=== PATIENT | male | born 1990 ===

== ENCOUNTER 2017-04-15 07:55 | Emergency (ER) | payer OTHER ==
[2017-04-15 07:59] VITALS: BMI 26.1
[2017-04-15 08:04] VITALS: RESP 16
[2017-04-15] MEDS ORDERED: Sodium Chloride 0.9% 1,000 ML IV STA (08:45)
[2017-04-15] MEDS ORDERED: Iohexol 240 (50 ml) PO ONE (08:46)
--- NOTE | 2017-04-15 08:51 | ED PDOC ---
HPI: Abdomen Time Seen by Provider: 04/15/17 08:16 Chief Complaint (Nursing): Abdominal Pain Chief Complaint (Provider): Abdominal Pain History Per: Patient History/Exam Limitations: no limitations Onset/Duration Of Symptoms: Days (x2) Current Symptoms Are (Timing): Still Present Additional Complaint(s): 26 year old male with no significant past medical history, who presents to the ED due to tingling in his hands and epigastric abdominal pain x2 days. Patient states he works with his hands a lot and yesterday at 8pm his hands began cramping up and he had difficulty moving them. States the cramping resolved around 1am today, but he still has some intermittent tingling in his hands. Denies any pain or tingling in other areas of his arms. Patient is also complaining of epigastric pain with associated nausea and 3 episodes of non- bloody vomiting. Denies diarrhea, headaches, dizziness, weakness, neck pain, testicular pain, or any other injury or fall. PMD: Provider TBD Past Medical History Reviewed: Historical Data, Nursing Documentation, Vital Signs Vital Signs: Last Vital Signs Temp 97.0 F L 04/15/17 07:59 Pulse 83 04/15/17 07:59 Resp 16 04/15/17 07:59 BP 153/93 H 04/15/17 07:59 Pulse Ox 99 04/15/17 12:19 - Medical History PMH: No Chronic Diseases - Surgical History Surgical History: No Surg Hx - Family History Family History: States: Unknown Family Hx - Living Arrangements Living Arrangements: With Family - Home Medications Home Medications: Ambulatory Orders Medication Instructions Recorded Famotidine [Pepcid] 20 mg PO DAILY PRN #6 tab 04/15/17 Ibuprofen [Motrin] 600 mg PO TID 7 Days tab 04/15/17 - Allergies Allergies/Adverse Reactions: Allergies Allergy/AdvReac Type Severity Reaction Status Date / Time No Known Allergies Allergy Verified 04/15/17 07:58 Review of Systems ROS Statement: Except As Marked, All Systems Reviewed And Found Negative Constitutional: Negative for: Fever, Weakness Cardiovascular: Negative for: Chest Pain Gastrointestinal: Positive for: Nausea, Vomiting, Abdominal Pain Genitourinary Male: Negative for: Scrotal Pain Musculoskeletal: Positive for: Hand Pain (bilateral tingling). Negative for: Neck Pain Neurological: Negative for: Weakness, Headache, Dizziness Physical Exam - Reviewed Nursing Documentation Reviewed: Yes Vital Signs Reviewed: Yes - Physical Exam Appears: Positive for: Non-toxic, No Acute Distress Head Exam: Positive for: ATRAUMATIC, NORMAL INSPECTION, NORMOCEPHALIC Skin: Positive for: Normal Color, Warm, Dry. Negative for: Rash Eye Exam: Positive for: EOMI, Normal appearance, PERRL ENT: Positive for: Normal ENT Inspection. Negative for: Nasal Congestion Neck: Positive for: Normal, Painless ROM, Supple Cardiovascular/Chest: Positive for: Regular Rate, Rhythm. Negative for: Murmur Respiratory: Positive for: Normal Breath Sounds. Negative for: Respiratory Distress Gastrointestinal/Abdominal: Positive for: Soft, Tenderness (epigastric and RLQ) Back: Positive for: Normal Inspection. Negative for: L CVA Tenderness, R CVA Tenderness Extremity: Positive for: Normal ROM (hands bilaterally). Negative for: Tenderness, Deformity Neurologic/Psych: Positive for: Alert, odd shoe examiner II-XII, Oriented (x3). Negative for : Motor/Sensory Deficits (5/5 hand strength) - Laboratory Results Result Diagrams: 04/15/17 08:55 04/15/17 08:55 Interpretation Of Abn Labs: no acute - ECG O2 Sat by Pulse Oximetry: 99 (RA) Pulse Ox Interpretation: Normal - CT Scan/US abd/pelvis Other Rad Studies (CT/US): Read By Radiologist Other Rad Interpretation: no acute - Progress ED Course And Treament: 1258: Stable. AAOx3. Pain free. Tolerated po. Medical Decision Making Medical Decision Making: Time: 08:45 Initial Impression: Abdominal pain Initial Plan: --CT Abdomen and Pelvis --CMP --Lipase --CBC w/ differential --Sodium Chloroide 0.9% 1,000 mls/hr --Iohexol 50 ml PO --Pepcid 20 mg IVP --Toradol 15 mg IVP --Zofran Inj 4 mg IV --Reevaluation Scribe Attestation: Documented by Srinivas Quintana, acting as a scribe for Leonel La MD. Provider Scribe Attestation: All medical record entries made by the Scribe were at my direction and personally dictated by me. I have reviewed the chart and agree that the record accurately reflects my personal performance of the history, physical exam, medical decision making, and the department course for this patient. I have also personally directed, reviewed, and agree with the discharge instructions and disposition. Disposition - Clinical Impression Clinical Impression: Abdominal pain, Paresthesia - Patient ED Disposition Is Patient to be Admitted: No Counseled Patient/Family Regarding: Studies Performed, Diagnosis, Need For Followup, Rx Given - Disposition Referrals: [facility] [Outside] - 04/17/17 Disposition: Routine/Home Disposition Time: 12:59 Condition: STABLE Additional Instructions: Return if not better in 3 days. Prescriptions: Famotidine [Pepcid] 20 mg PO DAILY PRN #6 tab PRN Reason: Pain Ibuprofen [Motrin] 600 mg PO TID 7 Days tab Instructions: Abdominal Pain (ED), Paresthesia (ED) Forms: [facility] ED School/Work Excuse Print Language: GEORGIAN
[2017-04-15 09:02] LABS: BASO % 0.6 % (0.0-2.0); EOS # 0.1 K/uL (0.0-0.7); EOS % 0.8 % (0.0-4.0); HEMOGLOBIN 15.1 g/dL (12.0-18.0); LYMPH # 2.6 K/uL (1.0-4.3); LYMPH % 33.5 % (20.0-40.0); MEAN CELL VOLUME 87.9 fl (80.0-94.0); MEAN CORPUSCULAR HEMOGLOBIN 30.2 pg (27.0-31.0); MEAN CORPUSCULAR HGB CONC 34.3 g/dL (33.0-37.0); MEAN PLATELET VOLUME 9.7 fl (7.2-11.7); MONO % 12.9 % (0.0-10.0); NEUT # 4.1 K/uL (1.8-7.0); NEUT % 52.2 % (50.0-75.0); NRBC % 0.1 % (0.0-0.0); RED CELL DISTRIBUTION WIDTH 12.9 % (11.5-14.5); WHITE BLOOD COUNT 7.9 K/uL (4.8-10.8)
[2017-04-15 09:13] LABS: ALB/GLOB RATIO 1.3 (1.0-2.1); ALBUMIN 4.4 g/dL (3.5-5.0); ALT/SGPT 179 U/L (21-72); AST/SGOT 134 U/L (17-59); BLOOD UREA NITROGEN 11 mg/dl (9-20); CALCIUM 9.4 mg/dL (8.4-10.2); GFR AFRICAN-AMERICAN > 60; GFR NON-AFRICAN AMERICAN > 60; LIPASE 51 U/L (23-300)
[2017-04-15] MEDS ORDERED: Sodium Chloride 0.9% 50 ML IV ONE (10:30)
[2017-04-15] MEDS ORDERED: Iohexol 300 50 ML ONE (10:30)
--- NOTE | 2017-04-15 12:42 | CT ---
PROCEDURE: CT Abdomen and Pelvis with contrast HISTORY: abd pain COMPARISON: None. TECHNIQUE: Contrast dose: 95 cc of Omnipaque 300. Axial and reformatted coronal and sagittal CT images of the abdomen and pelvis were obtained after IV and oral contrast administration. Radiation dose: Total exam DLP = 889.66 mGy-cm. This CT exam was performed using one or more of the following dose reduction techniques: Automated exposure control, adjustment of the mA and/or kV according to patient size, and/or use of iterative reconstruction technique. FINDINGS: LOWER THORAX: Unremarkable. LIVER: Mild hepatomegaly demonstrates diffuse low-attenuation suggestive of mild hepatic steatosis. The portal vein is patent. . GALLBLADDER AND BILE DUCTS: Unremarkable. PANCREAS: Unremarkable. No gross lesion or ductal dilatation. SPLEEN: Unremarkable. ADRENALS: Unremarkable. No mass. KIDNEYS AND URETERS: Unremarkable. No hydronephrosis. No solid mass. VASCULATURE: Unremarkable. No aortic aneurysm. BOWEL: Mild constipation is noted. No obstruction. No gross mural thickening. APPENDIX: Normal appendix. PERITONEUM: Unremarkable. No free fluid. No free air. LYMPH NODES: Unremarkable. No enlarged lymph nodes. BLADDER: Unremarkable. REPRODUCTIVE: Unremarkable. BONES: No acute fracture. OTHER FINDINGS: None. IMPRESSION: No evidence of cholecystitis, pancreatitis or appendicitis. Mild constipation. Mild hepatomegaly and mild hepatic steatosis.
[2017-04-15 13:36] VITALS: BP 145/92; PULSE 80; TEMP 98.2; O2SAT 98
== END 2017-04-15 13:38 | disposition home or self-care (01) ==
LOC: H.ER 07:55
DX: R20.9 Unspecified disturbances of skin sensation (principal); R10.9 Unspecified abdominal pain
CPT/HCPCS: 74177; 80053; 83690; 85025; 96361; 96374; 96375; 99282; J1885; J2405; J7040; Q9966; Q9967

== ENCOUNTER 2018-03-12 09:30 | Emergency (ER) | payer OTHER ==
[2018-03-12 09:31] VITALS: BMI 26.1
--- NOTE | 2018-03-12 10:39 | ED PDOC ---
HPI: General Adult Time Seen by Provider: 03/12/18 10:37 Chief Complaint (Nursing): Flu-like Symptoms Chief Complaint (Provider): flu-like illness History Per: Patient (27 y/o male here with fever/chills/bodyaches/cough x 4 days. Has taken tylenol prn for fever. Notes mild cough nonproductive.) Past Medical History Reviewed: Historical Data, Nursing Documentation, Vital Signs Vital Signs: Last Vital Signs Temp 102.2 F H 03/12/18 10:30 Pulse 100 H 03/12/18 10:30 Resp 20 03/12/18 10:30 BP 150/91 H 03/12/18 10:30 Pulse Ox 98 03/12/18 10:30 - Family History Family History: States: Unknown Family Hx - Home Medications Home Medications: Ambulatory Orders Medication Instructions Recorded Famotidine [Pepcid] 20 mg PO DAILY PRN #6 tab 04/15/17 Ibuprofen [Motrin] 600 mg PO TID 7 Days tab 04/15/17 Acetaminophen [Acetaminophen Extra 2 tab PO Q6 PRN #24 tablet 03/12/18 Strength] Ibuprofen [Motrin Tab] 800 mg PO Q8 PRN #21 tab 03/12/18 Oseltamivir Cap [Tamiflu] 75 mg PO BID #10 cap 03/12/18 Promethazine/Codeine 5 ml PO Q12 PRN #100 ml 03/12/18 [Codeine/Promethazine 10 MG/5 Ml-6.25 MG/5 Ml] - Allergies Allergies/Adverse Reactions: Allergies Allergy/AdvReac Type Severity Reaction Status Date / Time No Known Allergies Allergy Verified 03/12/18 10:30 Review of Systems ROS Statement: Except As Marked, All Systems Reviewed And Found Negative Constitutional: Positive for: Fever Respiratory: Positive for: Cough Physical Exam - Reviewed Nursing Documentation Reviewed: Yes Vital Signs Reviewed: Yes - Physical Exam Appears: Positive for: Well, Non-toxic, No Acute Distress Head Exam: Positive for: ATRAUMATIC, NORMAL INSPECTION, NORMOCEPHALIC Skin: Positive for: Normal Color, Warm, DRY Eye Exam: Positive for: EOMI, Normal appearance, PERRL ENT: Positive for: Normal ENT Inspection Neck: Positive for: Normal, Painless ROM Cardiovascular/Chest: Positive for: Regular Rate, Rhythm Respiratory: Positive for: CNT, Normal Breath Sounds Gastrointestinal/Abdominal: Positive for: Normal Exam, Soft Back: Positive for: Normal Inspection Extremity: Positive for: Normal ROM Neurologic/Psych: Positive for: Alert, Oriented - ECG O2 Sat by Pulse Oximetry: 98 - Progress ED Course And Treament: Motrin 800mg x 1 dose Disposition - Clinical Impression Clinical Impression: Influenza - Patient ED Disposition Is Patient to be Admitted: No - Disposition Referrals: [facility] [place] [Outside] Disposition: Routine/Home Disposition Time: 10:39 Condition: FAIR Prescriptions: Acetaminophen [Acetaminophen Extra Strength] 2 tab PO Q6 PRN #24 tablet PRN Reason: Fever >100.4 F Ibuprofen [Motrin Tab] 800 mg PO Q8 PRN #21 tab PRN Reason: Fever >100.4 F Oseltamivir Cap [Tamiflu] 75 mg PO BID #10 cap Promethazine/Codeine [Codeine/Promethazine 10 MG/5 Ml-6.25 MG/5 Ml] 5 ml PO Q12 PRN #100 ml PRN Reason: Cough Instructions: Flu, Adult (DC) Print Language: DANISH
[2018-03-12 13:03] VITALS: BP 132/85; PULSE 89; RESP 18; TEMP 98.3; O2SAT 100
== END 2018-03-12 11:25 | disposition home or self-care (01) ==
LOC: H.ER 09:30
DX: J11.1 Influenza due to unidentified influenza virus with other respiratory manifestations (principal)